=== PATIENT | female | born 1970 | race Caucasian/White ===

== ENCOUNTER → 2016-12-16 | Outpatient (CLI) | payer OTHER | END | disposition home or self-care (01) | LOC: C.RDSM 13:40 | PROVIDERS: ATTEND Physical Medicine & Rehabilitation Sports Medicine | DX: M25.512 Pain in left shoulder (principal) ==

== ENCOUNTER → 2017-04-22 | Outpatient (CLI) | payer OTHER ==
--- NOTE | 2017-04-22 21:25 | DIAGNOSTIC IMAGING REPORT ---
PELVIS WITHOUT CONTRAST (MRI) HISTORY: Bilateral hips and sacroiliac joint pain. INFLAMMATORY POLYARTHROPATHY/ STENT PLACED IN 2008 TECHNIQUE: Multiplanar multisequence MRI of the pelvis was performed without the use of intravenous contrast. COMPARISON STUDY: None. FINDINGS: Motion artifact resulting in suboptimal evaluation. There is a normal marrow signal intensity seen throughout the visualized osseous structures. No fracture or dislocation within the pelvis or hips. The sacrum and bilateral sacroiliac joints are within normal limits. Cartilage spaces within the bilateral hips are maintained for age. No masses or abnormal fluid collections identified. IMPRESSION: No significant abnormality within the pelvis or hips. Specifically, the bilateral sacroiliac joints are within normal limits. Electronically signed by: Trenton Fitzpatrick M.D. 04/22/2017 9:23 PM Dictated Date/Time: 04/22/2017 9:17 PM
== END | disposition home or self-care (01) ==
LOC: C.MRI 19:14
PROVIDERS: ATTEND Internal Medicine Rheumatology
DX: M06.4 Inflammatory polyarthropathy (principal)